=== PATIENT | male | born 1960 | race Caucasian/White ===

== ENCOUNTER 2024-05-16 08:32 | Outpatient (CLI) | payer OTHER, SELFPAY ==
--- NOTE | 2024-05-16 08:36 | XR_ITS ---
FINAL REPORT CLINICAL HISTORY: right hip pain COMPARISON: None FINDINGS: RIGHT HIP Two views of the right hip and an AP pelvis view were obtained. There is no acute fracture or dislocation. There are severe osteoarthritic changes with complete loss of the joint space. There is no evidence of bone destruction. There is no acute soft tissue abnormality. IMPRESSION: Advanced degenerative changes. Reviewed, Interpreted and Dictated by Cameron Loera MD Transcribed by Pavithra Alexander Authenticated and . [facility]
[2024-05-16 12:54] LABS: Basophils # 0.1 K/mm3 (0-0.2); Basophils % 0.6 % (0.1-2.0); Eosinophils # 0.2 K/mm3 (0.0-0.4); Eosinophils % 2.4 % (0.1-12.0); Hematocrit 46.2 % (42.0-52.0); Hemoglobin 15.2 g/dL (14.1-18.0); Lymphocytes # 1.9 K/mm3 (0.7-4.5); Lymphocytes % 22.3 % (10-50); Mean Corpuscular HGB Conc 32.9 g/dL (31.8-35.4); Mean Corpuscular Volume 94.1 fl (80-94); Mean Platelet Volume 10.6 fl (7.4-10.4); Monocytes # 0.8 K/mm3 (0.1-1.0); Monocytes % 8.9 % (1.7-9.3); Neutrophils # 5.5 K/mm3 (1.8-7.8); Neutrophils % 65.6 % (37.0-80.0); Platelet Count 277 K/mm3 (142-424); Red Blood Count 4.91 M/mm3 (4.60-6.20); Red Cell Distribution Width 13.7 % (11.5-17.5); White Blood Count 8.4 K/mm3 (4.8-10.8)
[2024-05-16 13:56] LABS: Alanine Aminotransferase 37 U/L (12-78); Albumin Level 4.3 g/dl (3.5-5.0); Albumin/Globulin Ratio 1.7 (1.1-1.8); Alkaline Phosphatase 90 U/L (38-126); Anion Gap 16.4 mEq/L (5-15); Aspartate Amino Transferase 34 U/L (17-59); Bilirubin,Total 0.6 mg/dl (0.2-1.3); Blood Urea Nitrogen 18 mg/dl (9-20); Calcium 9.1 mg/dl (8.4-10.2); Carbon Dioxide 31 mmol/L (22.0-30.0); Chloride 99 mmol/L (98-107); Chol/HDL Ratio 4.6 (1-3.5); Cholesterol 208 mg/dl (140-200); Estimated Glomerular Filt Rate 98 ml/min (>60); GFR (African American) 119 ML/MIN (>60); Globulin 2.5 g/dL (1.3-3.2); Glucose 82 mg/dl (74-100); HDL Cholesterol 45 mg/dl (40-60); Potassium 4.4 mmoL/L (3.5-5.1); Sodium 142 mmol/L (136-145); Total Protein,Serum 6.8 g/dl (6.3-8.2); Triglycerides 115 mg/dl (30-150); VLDL Cholesterol 23 mg/dL (0-40)
[2024-05-16 14:08] LABS: 25-OH Vitamin D, Total 28.3 ng/mL (30-100)
[2024-05-16 14:09] LABS: Direct LDL Cholesterol 120.15 mg/dL (100-129)
[2024-05-16 14:10] LABS: Free T4 (Free Thyroxine) 0.84 ng/dl (0.78-2.19)
[2024-05-16 14:25] LABS: Prostate Specific Ag Screen 1.2 ng/ml (0.0-4.0); Thyroid Stimulating Hormone 3.94 uIU/mL (0.465-4.68)
[2024-05-16 14:26] LABS: Hepatitis C Ab Qual. W/ RFX NEGATIVE (Negative)
[2024-05-16 14:34] LABS: HIV Combo NEGATIVE (Negative)
[2024-05-16 14:44] LABS: Vitamin B12 275 pg/mL (239-931)
[2024-05-16 15:27] LABS: Iron 111 ug/dL (49-181)
[2024-05-16 15:43] LABS: Total Iron Binding Capacity 402 ug/dL (261-462)
[2024-05-16 16:11] LABS: Ferritin 27.8 ng/ml (17.9-464)
[2024-05-16 18:06] LABS: Hemoglobin A1C 5.5 % (4.0-6.0)
== END 2024-05-16 23:59 | disposition home or self-care (01) ==
LOC: RAD 08:34
PROVIDERS: PCP Nurse Practitioner Family; Visit Provider Physician Assistant Surgical
DX: M25.551 Pain in right hip (principal); R53.83 Other fatigue; I10 Essential (primary) hypertension; E66.01 Morbid (severe) obesity due to excess calories; Z68.42 Body mass index [BMI] 45.0-49.9, adult; Z11.4 Encounter for screening for human immunodeficiency virus [HIV]; Z13.220 Encounter for screening for lipoid disorders; Z11.59 Encounter for screening for other viral diseases; Z12.5 Encounter for screening for malignant neoplasm of prostate; Z13.1 Encounter for screening for diabetes mellitus
CPT/HCPCS: 73502; 80053; 80061; 82306; 82607; 82728; 83036; 83540; 83550; 84439; 84443; 85025; 86803; 87389; G0103

== ENCOUNTER 2024-05-17 11:37 | Outpatient (CLI) | payer OTHER, SELFPAY ==
[2024-05-17 11:39] LABS: Microscopic, Urine URINE MICROSCOPIC (MICROSCOPIC)
[2024-05-17 12:06] LABS: Appearance,Urine CLEAR (Clear); Bilirubin,Urine Negative (Negative); Blood, Urine Negative (Negative); Color,Urine YELLOW (Yellow); Glucose,Urine (UA) Negative (Negative); Ketones,Urine Negative (Negative); Leukocyte Esterase,Urine Negative (Negative); Nitrate,Urine Negative (Negative); Protein,Urine Negative (Negative); Specific Gravity, Urine >= 1.030 (1.005-1.030); Urobilinogen,Urine 0.2 EU/dl (0.2)
[2024-05-17 12:38] LABS: Bacteria,Urine Trace /lpf; Mucus,Urine Trace /lpf; Squamous Epithelial Cell,Urine Occasional #/hpf (0-5)
== END 2024-05-17 23:59 | disposition home or self-care (01) ==
LOC: LAB 11:37
PROVIDERS: PCP Nurse Practitioner Family; Visit Provider Nurse Practitioner Family
DX: R53.83 Other fatigue (principal); I10 Essential (primary) hypertension; M25.551 Pain in right hip; M54.50 Low back pain, unspecified; Z87.891 Personal history of nicotine dependence
CPT/HCPCS: 81001; 84156; 87086

== ENCOUNTER 2024-05-24 12:25 | Outpatient (CLI) | payer OTHER, SELFPAY ==
--- NOTE | 2024-05-24 12:53 | ECG_ITS ---
APPROVED REPORT Exam: Resting ECG HR:79 bpm ECG Measurements Heart Rate [address] 207 P 46 QRSd 162 QRS 22 QT 382 T 26 QTc 416 Conclusion SINUS RHYTHM RIGHT BUNDLE BRANCH BLOCK ABNORMAL ECG UNCONFIRMED REPORT Electronically signed by : Wilmar Garcia MD 05/24/2024 16:09:51
== END 2024-05-24 23:59 | disposition home or self-care (01) ==
LOC: PREOP 12:26
PROVIDERS: PCP Nurse Practitioner Family; Visit Provider Orthopaedic Surgery
DX: I45.10 Unspecified right bundle-branch block (principal); R94.31 Abnormal electrocardiogram [ECG] [EKG]; Z01.810 Encounter for preprocedural cardiovascular examination
CPT/HCPCS: 93005

== ENCOUNTER 2024-05-29 09:41 | Day surgery (SDC) | payer OTHER, SELFPAY ==
[2024-05-24 13:41] VITALS: BMI 47.2
--- NOTE | 2024-05-27 10:40 | PC.NURSE ---
Reviewed pt's EKG w/ R. DURGA Calix. Determined pt ok to proceed with hip injection but recommends follow up w/ cardiology for further evaluation. Notified pt, agrees to eval. recommendation. Appt. scheduled for today @1400. Pt notified.
--- NOTE | 2024-05-28 10:44 | SUR.PREOP ---
Call placed to Cardiology as requested per Zuleyma Calix for clearance/guidance regarding pt's upcoming procedure and findings from recent appt.
[2024-05-29 10:14] VITALS: BP 133/91; PULSE 86; RESP 20; TEMP 36.4; O2SAT 96
--- NOTE | 2024-05-29 10:32 | P.PNANES_ITS ---
[facility] Disclaimer: The information contained in this section may have been updated after the patient was seen, as this information can be updated by other users. Medical History Edema Abnormal ECG COPD (chronic obstructive pulmonary disease) Screening for lipid disorders Establishing care with new doctor, encounter for Arthritis pain Obesity, morbid, BMI 40.0-49.9 Tear of left rotator cuff Hepatitis A Carpal tunnel syndrome Hypertension Surgical History History of arthroscopic knee surgery History of carpal tunnel release H/O gastric sleeve History of cholecystectomy History of total right knee replacement (TKR) H/O repair of rotator cuff Family History Other Adopted Social History Smoking Status: Former smoker tobacco type: cigarettes how long ago did patient quit smokin years ago alcohol intake: never substance use type: denies use current occupational status: disabled Travel in the last 8 weeks: None [facility] Anesthesia Checklist Patient Identification Patient Identification: Arm Band Structural Data Admitted From: Home Planned Operative Procedure/s: Right Hip Injection with Arthrogram Consent for Planned Operative Procedure(s) Verified: Yes Verified Documents: Surgical Consent and History and Physical NPO Status Verified Time NPO: 00:00 Additional verifications Anesthesia Reactions: No Hx Blood Transfusions: No Blood Transfusion Reaction: No Airway Assessment Mallampati Score:: Class II C-Spine Mobility Assessed: Yes TMJ Mobility Assessed: Yes Dentition: Good Dentition Neurological Assessment Level of Consciousness: Awake, Alert and Appropriate Anesthesia Plan Anesthesia Risk discussed: Yes Anesthesia Plan: Verified ASA Class: III Anesthesia Type: MAC
--- NOTE | 2024-05-29 10:52 | P.OP_ITS ---
Date of procedure: 05/29/24 Pre-op Diagnosis:: Right hip osteoarthritis Post-op Diagnosis:: Same Procedure performed:: Right hip injection with arthrogram x-ray guidance for needle placement Surgeon:: Oleg Peck DO Sales And Marketing Coordinator(s):: Alonzo GUERRERO ACCOUNT MANAGER EDUCATION:: Zac[facility] Mesa Anesthesia: MAC Estimated blood loss (mL): 0 Operative findings:: See dictation Operative note:: Patient was identified preoperatively. Right hip marked with yes my initials. Transferred operative suite. Given sedation. Right hip was then prepped and draped. Once prepped and draped x-ray was brought into identify the right hip capsule. Direct palpation on the femoral artery performed followed by x-ray guidance for proper trajectory of 18-gauge spinal needle into the hip capsule. This was visualized on the x-ray once needle was guided into the hip capsule there was return of clear to yellowish tinged hip fluid contrast was utilized to inject in the hip capsule to perform x-ray guidance for proper needle placement confirmed this with the arthrogram once confirmed hip was injected with 80 mg Depo-Medrol 3 cc 1% lidocaine needle was removed Band-Aid placed patient waken sedation taken recovery stable condition. Condition: stable Disposition: PACU Complications:: None apparent
[2024-05-29 10:53] VITALS: BP 157/56; PULSE 82; RESP 20; TEMP 37.2; O2SAT 94
--- NOTE | 2024-05-29 11:02 | XR_ITS ---
FINAL REPORT CLINICAL HISTORY: HIP INJECTION FLUORO TIME 0:11 COMPARISON: None FINDINGS: FLUOROSCOPY LESS THAN 1 HOUR HISTORY: FINDINGS: Fluoroscopic guidance was provided for right hip injection. A single spot film was obtained. 11 seconds of fluoroscopy time were used, with a dosage of 4.79 mGy. IMPRESSION: As above. Reviewed, Interpreted and Dictated by Cameron Loera MD Transcribed by Cornelia Mukherjee Authenticated and . [facility]
[2024-05-29 11:08] VITALS: BP 102/64; PULSE 77; RESP 20; O2SAT 96
[2024-05-29 11:23] VITALS: BP 131/75; PULSE 69; RESP 20; O2SAT 97
[2024-05-29 11:35] VITALS: BP 136/88; PULSE 96; RESP 18; O2SAT 95
== END 2024-05-29 11:35 | disposition home or self-care (01) ==
PROVIDERS: PCP Nurse Practitioner Family; Visit Provider Orthopaedic Surgery
PROC: 3E0U3GC Introduction of Other Therapeutic Substance into Joints, Percutaneous Approach (ICD-10-PCS; CPT 20610; principal; 2024-05-29 11:00)
DX: M16.11 Unilateral primary osteoarthritis, right hip (principal); Z79.899 Other long term (current) drug therapy
CPT/HCPCS: 20610; 73502

== ENCOUNTER 2024-06-06 11:10 | Outpatient (CLI) | payer OTHER, SELFPAY ==
[2024-06-06] VITALS (7 sets, daily range): BP systolic 131–169; BP diastolic 70–100; PULSE 55–75; RESP 17–18; TEMP 36.8; O2SAT 94–98; BMI 46.3
--- NOTE | 2024-06-06 11:44 | CT_ITS ---
APPROVED REPORT Labor Contract Analyst: CLINICAL INDICATION Chest Pain TECHNIQUE Image Acquisition: A 128 slice MDCT scanner (Decision Curvea View) was used for data acquisition. A noncontrast coronary calcium scan was performed. A CT attenuation threshold of 130 Hounsfield units (HU) was used for the detection of calcium in contiguous voxels of 1 sq mm in area to be counted as individual lesions. Bolus tracking in the ascending aorta with a threshold of 180 HU was performed. Immediately afterwards, ECG synchronized cardiac CT was then performed from the cardiac base to apex using retrospective gating with ECG tube current modulation. A total of 85 mL of Isovue 370 mg/mL contrast medium was administered at 5 mL/sec followed by a saline flush using a biphasic injection protocol. A tube voltage of 120 KVp was used. The patient received the following medications prior to the cardiac CT. 100 mg of oral metoprolol 15 mg of oral ivabradine 0.8 mg of sublingual nitroglycerin The average heart rate at the time of acquisition was 50 bpm and regular. Image Reconstruction Transaxial images were reconstructed at 0.67 mm slide thickness. Data was reviewed interactively on an advanced workstation capable of 2 and 3-dimensional displays in all conventional reconstruction formats, including multiplanar reformations, maximum intensity projections, curved multiplanar reformations, and volume rendered reconstructions. When applicable, selected routine images describing the relevant coronary anatomy and pathology were saved and sent to PACS. Complications None Technical Quality Overall image quality was suboptimal due to significant blurring and motion artifact. Coronary artery opacification was suboptimal. Total DLP (Dose-Length Product) is 2498.8 mGy-cm. The reported value represents the total of one or more individual components during the CT acquisition of this date and at this time, and as such, the same value may appear in more than one CT report depending on the interpreting/reporting physicians. COMPARISON None FINDINGS CT Coronary Calcium Scoring LMA (Left Main Artery) = 142 LAD (Left Anterior Descending) = 124 LCX (Left Coronary Circumflex) = 0 RCA (Right Coronary Artery) = 233 Total Calcium Score = 499 using the AJ-130 method. The observed calcium score of 499 is at 89th percentile for subjects of the same age, sex, and race/ethnicity. The interpretation of the calcium heart score is based on the following continuum*: 0 = no calcified plaque detected (risk of coronary artery disease is very low ??? less than 5%) 1-10 = calcium detected in extremely minimal levels (risk of coronary diseases is still low ??? less than 10%) 11-100 = mild levels of plaque detected with certainty (mild or minimal narrowing of heart arteries is likely) 101-400 = definite,at least moderate levels of plaque detected (relatively high risk of a heart attack within 3-5 years) >401-999 = extensive levels of plaque detected (high risk of heart attack, high levels of vascular disease are present, high likelihood of at least one significant coronary narrowing) *The calcium heart score quantifies the burden of coronary calcification/plaque in the coronary arteries. The calcium heart score is not able to evaluate the presence or burden of non-calcified (i.e. soft) plaque. There is mild calcification of the descending thoracic aorta. Coronary CT Angiography The coronary arterial system is right dominant. Quantitative Stenosis Grading: Left Main (LM): The left main originates normally from the left sinus of Valsalva. The LM bifurcates into the left anterior descending artery and left circumflex artery. There is mixed calcified/noncalcified proximal LM, with < 25% gnosis. Left Anterior Descending (LAD) and Diagonal Branches: The LAD gives off 3 diagonal branch(es). There is mixed calcified/noncalcified plaque in the proximal and mid LAD segments with up to 50 to 70% luminal stenosis. There is no evidence of LAD-myocardial bridge. Left Circumflex (LCX) and Obtuse Marginals (OM): The LCX gives off 1 Obtuse Marginal (OM) branch(es). The LCX and its branches are patent with no evidence of atherosclerosis. Right Coronary Artery (RCA): The RCA originates normally from the right sinus of Valsalva. The RCA gives off a posterior descending artery (PDA) and posterolateral (PL) branches. Calcified/noncalcified plaque in the proximal RCA segment with up to 50 to 70% luminal stenosis. Non-Coronary Cardiac Findings: Analysis of the left ventricular (LV) structure and function was performed after 3-D reconstruction of the LV from axial images, with user-corrected automatic contouring for assessment of LV volumes and user-defined reconstruction from oblique planes for measurement of 3-D cardiac structure and function. -The left ventricle systolic function is indeterminate in the study. -There is no left atrial appendage filling defect. Two right pulmonary veins and two left pulmonary veins drain normally into the left atrium. -No pericardial thickening or calcification. -Central and branch pulmonary arteries in the [id number] are unremarkable. -Thoracic aorta within the visualized thoracic aortic-branches in the [id number] is unremarkable. Extracardiac Structures Small circumferential pericardial effusion is present. IMPRESSION -Suboptimal image quality due to significant motion and blurring artifact, as well as suboptimal IV opacification of the coronary arteries. This may affect the diagnostic interpretation of the study findings. -Presence of coronary calcification with an Agatston score = 499 using the AJ-130 method. -The observed calcium score of 499 is at 89th percentile for subjects of the same age, sex, and race/ethnicity. -Multivessel atherosclerotic coronary disease with possible evidence of significant flow-limiting atherosclerosis of the proximal LAD and/or proximal RCA segments. -CAD-RADS 3. Management recommendations per ACC/AHA guidelines*, as clinically appropriate. -Small circumferential pericardial effusion is present. -Mild calcification of the descending thoracic aorta. *Recommendations: CAD RADS 0: Reassurance. Consider non-atherosclerotic causes of chest pain. CAD RADS 1: Consider non-atherosclerotic causes of chest pain. Consider preventive therapy and risk factor modification. CAD RADS 2: Consider non-atherosclerotic causes of chest pain. Consider preventive therapy and risk factor modification, particularly for patients with nonobstructive plaque in multiple segments. CAD RADS 3: Consider further functional testing. Consider symptom-guided anti-ischemic and preventive pharmacotherapy as well as risk factor modification per published guideline statements. CAD RADS 4A: Consider further functional testing or invasive coronary angiography with revascularization per published guideline statements. Consider symptom-guided anti-ischemic and preventive pharmacotherapy as well as risk factor modification per published guideline statements. CAD RADS 4B: Invasive coronary angiography recommended with revascularization per published guideline statements. Consider symptom-guided anti-ischemic and preventive pharmacotherapy as well as risk factor modification per published guideline statements. CAD RADS 5: Consider invasive angiography and/or viability assessment with revascularization per published guideline statements. Consider symptom-guided anti-ischemic and preventive pharmacotherapy as well as risk factor modification per published guideline statements. CRITICAL RESULT None COMMUNICATION Per this written report The coronary and cardiac findings of this CCTA were reviewed, reported, and signed by Rigoberto Sharma MD (Closing Supervisor) Conclusion Electronically signed by : Angelita Sharma MD 06/11/2024 12:47:17
[2024-06-06] MEDS: IVABRADINE HCL 7.5MG TABLET 15 MG PO (12:29)
[2024-06-06] MEDS: METOPROLOL TARTRATE 50MG TABLET 50 MG (12:29)
[2024-06-06] MEDS: METOPROLOL TARTRATE 50MG TABLET PO (13:18)
[2024-06-06] MEDS: SODIUM CHLORIDE 0.9% 10ML SYR (RAD ONLY) 10 ML IV (14:13)
[2024-06-06] MEDS: 0.9 % SODIUM CHLORIDE 50 ML VIAL IV (14:13)
[2024-06-06] MEDS: IOPAMIDOL-370 (76%);100ML BOTTLE 85 ML IV (14:13)
== END 2024-06-06 14:50 | disposition home or self-care (01) ==
LOC: RT 11:11 → RAD 12:19
PROVIDERS: PCP Nurse Practitioner Family; Visit Provider Physician Assistant
DX: I25.10 Atherosclerotic heart disease of native coronary artery without angina pectoris (principal); R94.31 Abnormal electrocardiogram [ECG] [EKG]; R60.9 Edema, unspecified
CPT/HCPCS: 75574; 93306; Q9967

== ENCOUNTER 2024-07-16 12:40 | Outpatient (CLI) | payer OTHER, SELFPAY ==
--- NOTE | 2024-07-16 13:23 | ECG_ITS ---
APPROVED REPORT Exam: Resting ECG HR:93 bpm ECG Measurements Heart Rate 93 AXES NV 176 P 26 QRSd 129 QRS 63 QT 384 T 25 QTc 435 Conclusion SINUS RHYTHM RIGHT BUNDLE BRANCH BLOCK Old anteroseptal changes ABNORMAL ECG UNCONFIRMED REPORT Electronically signed by : Wilmar Garcia MD 07/17/2024 08:01:26
== END 2024-07-16 23:59 | disposition home or self-care (01) ==
LOC: PREOP 12:41
PROVIDERS: PCP Nurse Practitioner Family; Visit Provider Orthopaedic Surgery
DX: Z01.810 Encounter for preprocedural cardiovascular examination (principal); I45.10 Unspecified right bundle-branch block; R94.31 Abnormal electrocardiogram [ECG] [EKG]
CPT/HCPCS: 93005

== ENCOUNTER 2024-07-22 10:00 | Day surgery (SDC) | payer OTHER, SELFPAY ==
[2024-07-16 13:33] VITALS: BMI 44.1
--- NOTE | 2024-07-22 | XR_ITS ---
FINAL REPORT CLINICAL HISTORY: Left Hip Injection in OR 0.0 min 2.21 mGy FINDINGS: FLUOROSCOPY LESS THAN 1 HOUR HISTORY: Fluoroscopy guidance. Fluoroscopic guidance was provided for left hip injection in the OR. A single spot film was obtained. A total of 0.0 minutes of fluoroscopy time were used. Total DAP: 2.21 mGy IMPRESSION: As above. Reviewed, Interpreted and Dictated by Shawna Bae MD Transcribed by Bethany Bell Authenticated and [facility]
[2024-07-22 10:41] VITALS: BP 153/81; PULSE 84; RESP 18; TEMP 36.6; O2SAT 94
[2024-07-22] MEDS: LACTATED RINGERS 1000ML 1,000 ML 100 ML IV (11:08)
[2024-07-22] MEDS: TRIAMCINOLONE ACET 40MG/ML VIAL 80 MG (13:05)
[2024-07-22] MEDS: LIDOCAINE 1% 10ML MDV 10 ML (13:05)
--- NOTE | 2024-07-22 13:10 | EXP.OP.NOTE ---
Date of procedure: 07/22/24 Pre-op Diagnosis:: Left hip osteoarthritis Post-op Diagnosis:: Same Procedure performed:: Left hip injection with arthrogram x-ray guidance for needle placement Surgeon:: Oleg Peck DO Anesthesia: MAC Estimated blood loss (mL): 0 Operative findings:: See dictation Operative note:: Patient identified preoperatively. Left hip marked yes my initials. Transported operative suite placed upon the radiolucent bed. Left hip was prepped and draped normal sterile fashion after patient was given sedation. Once prepped and draped final operative timeout performed to identify proper patient procedure and extremity. Everyone involved the case agreed. Is no counter indication beginning. X-rays brought into identify the left hip joint. 18-gauge spinal needle was directed into the hip capsule under proper trajectory using x-ray guidance. Once in the hip joint arthrogram was performed to confirm needle placement. Once confirmed to be intra-articular and in the proper position the hip was injected with 80 mg of Kenalog 3 cc of 1% lidocaine patient tolerated procedure well without complication taken to stepdown in stable condition. Condition: stable Disposition: PACU Complications:: None apparent
[2024-07-22 13:13] VITALS: BP 146/78; PULSE 72; RESP 17; TEMP 36.5; O2SAT 97
[2024-07-22] MEDS: IOPAMIDOL-370 (76%);100ML BOTTLE 10 ML IV (13:18)
[2024-07-22 13:23] VITALS: BP 141/80; PULSE 78; RESP 17; O2SAT 97
[2024-07-22 13:33] VITALS: BP 140/91; PULSE 71; RESP 18; O2SAT 97
== END 2024-07-22 13:43 | disposition home or self-care (01) ==
PROVIDERS: PCP Nurse Practitioner Family; Visit Provider Orthopaedic Surgery
PROC: 3E0U3GC Introduction of Other Therapeutic Substance into Joints, Percutaneous Approach (ICD-10-PCS; CPT 20610; principal; 2024-07-22 12:15)
DX: M16.12 Unilateral primary osteoarthritis, left hip (principal)
CPT/HCPCS: 20610; 77002; 73502; J2250; J2405; J3010; J3301; J7120; Q9967

== ENCOUNTER 2024-08-06 07:16 | Outpatient (CLI) | payer OTHER, SELFPAY ==
--- NOTE | 2024-08-06 | CA_ITS ---
APPROVED REPORT Exam: Pharmacologic Technologist: Winifred Moe Ht: 5 ft 9 in Wt: 310 lbs BSA: 2.49 m2 HR: 62 bpm BP: 154/64 mmHg Stress Test Details Test: Lexiscan HR Resting HR: 62 bpm Max Heart Rate (APMHR): 159.183035 bpm Max HR Achieved: 82 bpm Target HR (85% APMHR): 135.948554 bpm % of APMHR: 51.57 Recovery HR: 70 bpm BP Resting BP: 154.0/64.0 mmHg Max BP: 154.0/64.0 mmHg Recovery BP: 123.0/67.0 mmHg ECG Resting ECG: Sinus rhythm, right bundle branch block Stress ECG Conclusion Symptoms: Dyspnea Arrhythmias/Ectopy: Right bundle branch block ST-T Changes: Less than [address] depression Conclusion: Unremarkable due to Lexiscan infusion. Electronically signed by : Angelita Sharma MD 08/06/2024 12:16:03
--- NOTE | 2024-08-06 07:30 | NM_ITS ---
APPROVED REPORT Exam: Nuclear Stress Test Indication: Abnormal CCTA, HTN, High cholesterol Patient Location: Outpatient Stress Tech: Winifred Moe NM Tech:Mulu Monterroso, ARRT, RT (R)(N) Ht: 5 ft 9 in Wt: 296 lbs HR: 62 bpm BP: 154/64 mmHg BSA: 2.44 m2 TID: 1.23 BMI: 43.7 History: Abnormal CCTA, HTN, High cholesterol Procedure: Patient received 0.4 mg of intravenous Lexiscan, resting heart rate 62 bpm, resting blood pressure 154/64 mmHg, with Lexiscan maximum heart rate achieved was 84 bpm which is % of the maximum predicted heart rate and blood pressure was 126/71 mmHg. With Lexiscan, patient denied any complaint of chest pain. Cardiac Stress and Resting SPECT Images: Cardiac Stress and Resting SPECT images were obtained using technetium 99m Myoview 30.2 mCi stress and 10.35 mCi at rest. Resting and stress imaging in supine and prone positions demonstrate no evidence of fixed or reversible perfusion defects. There is increase in transient ischemic dilatation ratio (TID 1.23), which may be suggestive of possible multivessel disease or balanced ischemia. Gated imaging demonstrates low-normal global and regional LV systolic function. LVEF is calculated at 51%. Conclusion: No evidence of fixed or reversible perfusion defects. There is increase in transient ischemic dilatation ratio (TID 1.23), which may be suggestive of possible multivessel disease or balanced ischemia. Gated imaging demonstrates low-normal global and regional LV systolic function. LVEF is calculated at 51%. Electronically signed by : Angelita Sharma MD 08/06/2024 12:13:42
[2024-08-06] MEDS: ISOTOPE MYOVIEW (PER STUDY) 1 DOSE IV (09:09)
[2024-08-06] MEDS: SODIUM CHLORIDE 0.9% 10ML SYR (RAD ONLY) 10 ML IV ×2 (09:09)
[2024-08-06] MEDS: REGADENOSON 0.4MG/5ML SYRINGE 0.4 MG IV (09:09)
== END 2024-08-06 23:59 | disposition home or self-care (01) ==
LOC: RAD 07:17
PROVIDERS: PCP Nurse Practitioner Family; Visit Provider Physician Assistant
DX: I25.10 Atherosclerotic heart disease of native coronary artery without angina pectoris (principal); R93.1 Abnormal findings on diagnostic imaging of heart and coronary circulation; I31.39 Other pericardial effusion (noninflammatory)
CPT/HCPCS: 78452; 93017; 93018; A9502; J2785

== ENCOUNTER 2024-08-09 10:08 | Outpatient (CLI) | payer OTHER, SELFPAY ==
--- NOTE | 2024-08-09 10:15 | CA_ITS ---
APPROVED REPORT EXAM: Limited 2D Echocardiogram Moving Consultant: Brittney Funk, RCS, RVS Ht: 5 ft 9 in Wt: 310lbs BSA: 2.49 BP: 149/85 mmHg Indications: Pericardail effusion check, Abn EKG, COPD, Obesity, CAD, HTN, Edema 2D Dimensions IVSd 1.44 cm LVEF (Visual) 71.80 % PWd 1.16 cm EF AP4 68.20 % LVDd 4.71 cm GL Strain -31.1 % LVDs 2.78 cm M-Mode Dimensions RVDd 4.14 cm (0.9-2.6) LVDd 5.09 cm (3.5-5.7) LVDs 3.04 cm (3.5-5.7) IVSd 1.55 cm (0.6-1.1) PWd 1.38 cm (0.6-1.1) EF (Teich) 70.60% FS 40.30% EDV (Teich) 123.20 mL ESV (Teich) 36.20 mL Other Information Study Quality: Fair Conclusion This is a limited TTE to evaluate for pericardial effusion. Limited windows are obtained. There is a small sized, circumferential pericardial effusion present. The largest pocket measures 0.5 cm in diastole. No echo indications of tamponade or evidence of chamber collapse. Compared to prior study from 06/06/2024, the location and size of the pericardial effusion are overall unchanged. Electronically signed by : Angelita Sharma MD 08/11/2024 20:32:44
== END 2024-08-09 23:59 | disposition home or self-care (01) ==
LOC: RT 10:08
PROVIDERS: PCP Nurse Practitioner Family; Visit Provider Physician Assistant
DX: I31.39 Other pericardial effusion (noninflammatory) (principal); J44.9 Chronic obstructive pulmonary disease, unspecified; E66.9 Obesity, unspecified; I25.10 Atherosclerotic heart disease of native coronary artery without angina pectoris; I10 Essential (primary) hypertension; R94.31 Abnormal electrocardiogram [ECG] [EKG]; R93.1 Abnormal findings on diagnostic imaging of heart and coronary circulation
CPT/HCPCS: 93308

== ENCOUNTER 2024-08-30 08:55 | Day surgery (SDC) | payer OTHER, SELFPAY ==
[2024-08-30] VITALS (13 sets, daily range): BP systolic 149–181; BP diastolic 78–99; PULSE 60–80; RESP 16–20; TEMP 36.9; O2SAT 80–93; BMI 45.3
--- NOTE | 2024-08-30 07:13 | IR_ITS ---
APPROVED REPORT Patient Location: Outpatient Lead Qa Analyst: ELIAS Rosario RT (R) PROCEDURES Left heart catheterization Left ventriculogram Selective coronary angiogram Drug-eluting stent deployment to the proximal LAD INDICATION Coronary artery disease, Angina pectoris, Abnormal CCTA, Abnormal nuclear scan Informed consent was obtained prior to the procedure. COMPLICATIONS NONE Estimated Blood Loss: LESS THAN 10 ML TECHNIQUE One percent lidocaine used to anesthetize the right anterior aspect of the wrist. The right radial artery was accessed via the Seldinger technique. A 6 [place] sheath was placed in the right radial artery. 2.5 mg of Verapamil, 800 mcg of nitroglycerin, 1mg Lidocaine and 5000 U Heparin were given through the arterial sheath. The JL3 catheter was also used to perform left heart catheterization, left ventriculogram and selective coronary angiogram. At the end of the diagnostic angiogram therapeutic heparin was administered giving a therapeutic ACT and a BMW wire was placed into the distal LAD. A 4 mm x 26 mm Josh frontier stent was deployed at 12 edwin reducing the stenosis to 0%. DARI-3 flow was present before and after the procedure. At the end of procedure the apparatus was removed the sheath was removed and hemostasis was achieved using TR banding patient was transferred to the postop putting in stable condition ANGIOGRAPHIC RESULTS The left main artery Normal The left anterior descending artery Has a proximal concentric 70% stenosis with remaining vessel widely patent The circumflex artery Gives rise to a large caliber first obtuse marginal artery which has 20 to 30% concentric stenosis The right coronary artery Dominant and has proximal 20 and 30% stenoses with distal 10% luminal regularities The CAREY ventriculogram reveals Normal 60% The left ventricular end-diastolic pressure 20 mmHg IMPRESSION Severe proximal LAD disease as described above Successful stenting the proximal AD severe disease reduced to 0% with 1 drug-eluting stent Normal ejection fraction Elevated LVEDP PLAN 1. Effient and aspirin 2. LDL less than 55 achieved with high intensity statin 3. Avoidance of tobacco products 4. Risk factor modification 5. Cardiac rehabilitation Electronically signed by : Reji Shi MD 08/30/2024 13:15:05
[2024-08-30 09:24] LABS: Basophils % 0.3 % (0.1-2.0); Eosinophils # 0.1 Kmm3 (0.0-0.4); Eosinophils % 0.7 % (0.1-12.0); Hematocrit 47.3 % (42.0-52.0); Hemoglobin 15.2 g/dL (14.1-18.0); Immature Granulocytes # 0.04 10^3uL; Immature Granulocytes % 0.3 %; Lymphocytes # 2.4 K/mm3 (0.7-4.5); Lymphocytes % 19.8 % (10-50); Mean Corpuscular HGB Conc 32.1 g/dL (31.8-35.4); Mean Corpuscular Hemoglobin 30.6 pg (27.0-31.2); Mean Corpuscular Volume 95.2 fl (80-94); Mean Platelet Volume 9.6 fl (7.4-10.4); Monocytes # 0.9 K/mm3 (0.1-1.0); Monocytes % 7.6 % (1.7-9.3); Neutrophils # 8.8 K/mm3 (1.8-7.8); Neutrophils % 71.3 % (37.0-80.0); Nucleated Red Blood Cells # 0 10^3/uL; Nucleated Red Blood Cells % 0 %; Platelet Count 280 K/mm3 (142-424); Red Blood Count 4.97 M/mm3 (4.60-6.20); Red Cell Distribution Width 13.4 % (11.5-17.5); Red Cell Distribution Width-SD 46.9 fL; White Blood Count 12.3 K/mm3 (4.8-10.8)
[2024-08-30 09:34] LABS: Anion Gap 10.6 mEq/L (5-15); Blood Urea Nitrogen 23 mg/dl (9-20); Calcium 9.4 mg/dl (8.4-10.2); Carbon Dioxide 32 mmol/L (22.0-30.0); Chloride 102 mmol/L (98-107); Creatinine Clearance Estimated 78 mL/min (50-200); Estimated Glomerular Filt Rate 86 ml/min (>60); GFR (African American) 104 ML/MIN (>60); Glucose 107 mg/dl (74-100); Potassium 3.6 mmoL/L (3.5-5.1); Sodium 141 mmol/L (136-145)
[2024-08-30] MEDS: 0.9 % SODIUM CHLORIDE 500 ML 25 ML IV (11:45)
[2024-08-30] MEDS: HEPARIN 1,000 UNITS/500ML NS (CATH LAB) 3000 UNIT IV (11:45)
[2024-08-30] MEDS: LIDOCAINE 1% 10ML MDV 10 ML IJ (11:45)
[2024-08-30] MEDS: HEPARIN 1,000 UNITS/ML 10ML VIAL (CATH LAB) 5000 UNIT IV ×2 (11:45→12:11)
[2024-08-30] MEDS: diphenhydrAMINE 50MG/ML VIAL 50 MG IV (11:46)
[2024-08-30] MEDS: VERAPAMIL 2.5MG/ML 2ML VIAL 2.5 MG IV (11:46)
[2024-08-30] MEDS: NITROGLYCERIN 800MCG/8ML SYR (CATH LAB) 800 MCG IA (11:46)
[2024-08-30] MEDS: FENTANYL 100MCG/2ML VIAL 50 MCG IV (12:24)
[2024-08-30] MEDS: MIDAZOLAM HCL 1MG/ML 5ML VIAL 1 MG IV (12:24)
[2024-08-30] MEDS: PRASUGREL 10MG TAB 60 MG PO (12:32)
[2024-08-30] MEDS: IOPAMIDOL-370 (76%);100ML BOTTLE 125 ML IV (16:00)
[2024-08-30 16:01] LABS: CATHL Activated Clotting Time 311 SEC (74-125)
== END 2024-08-30 14:56 | disposition home or self-care (01) ==
PROVIDERS: PCP Nurse Practitioner Family; Visit Provider Internal Medicine
PROC: 4A023N7 Measurement of Cardiac Sampling and Pressure, Left Heart, Percutaneous Approach (ICD-10-PCS; CPT 93452; principal; 2024-08-30 10:15)
DX: I25.119 Atherosclerotic heart disease of native coronary artery with unspecified angina pectoris (principal); R94.39 Abnormal result of other cardiovascular function study; R94.31 Abnormal electrocardiogram [ECG] [EKG]; J44.9 Chronic obstructive pulmonary disease, unspecified; I10 Essential (primary) hypertension; E66.01 Morbid (severe) obesity due to excess calories; Z68.41 Body mass index [BMI] 40.0-44.9, adult; Z98.84 Bariatric surgery status; Z87.891 Personal history of nicotine dependence; Z79.82 Long term (current) use of aspirin; Z79.899 Other long term (current) drug therapy; Z95.5 Presence of coronary angioplasty implant and graft
CPT/HCPCS: 92928; 93458; 80048; 85025; 85347; 99152; 99153; C1725; C1760; C1769; C1874; J1200; J1644; J3010; Q9967

== ENCOUNTER 2025-01-06 15:53 | Outpatient (CLI) | payer OTHER, SELFPAY ==
--- OUTSIDE RECORDS SUMMARY | 2025-01-06 15:56 | XMS_ITS | Clinical Summary ---
Author Organization Healthcare Address [address] [place] [address] Care Team Providers Care Seed Analysis Laboratory Assistant Name Role Phone Shayla Snyder APRN Primary Care Provider [phone] Allergies No known active allergies Medications amLODIPine (Norvasc) 10 MG tablet 07/10/2024 Active Aspirin Low Dose 81 MG EC tablet Take 1 tablet by mouth daily. 08/30/2024 Active cyclobenzaprine (Flexeril) 10 MG tablet Take 1 tablet by mouth 3 times a day as needed for muscle spasms. 11/20/2023 Active hydroCHLOROthia zide (HYDRODiuril) 25 MG tablet 06/12/2024 Active metoprolol succinate XL (Toprol-XL) 50 MG 24 hr tablet 12/15/2023 Act saira rosuvastatin (Crestor) 20 MG tablet 05/17/2024 Active prasugrel (Effient) 10 MG tablet Take 1 tablet by mouth daily. Active cholecalciferol (Vitamin D3) 25 MCG (1000 UT) tablet Take 2 tablets by mouth daily. Active Active Problems Problem Noted Date Diagnosed Date Arthritis of left hip 09/26/2024 Social History Tobacco Use Types Packs/Day Years Used Date Smoking Tobacco: Former Cigarettes Q uit: 09/01/2001 Smokeless Tobacco: Never Alcohol Use Standard Drinks/Week Comments Not Currently 0 (1 standard drink = 0.6 oz pur e alcohol) last drink was in August Sex and Gender Information Value Date Recorded Sex Assigned at Not on file Legal Sex Male 5:03 PM EDT Gender Identity Not on file Sexual Orientation Not on file Last Filed Vital Signs Vital Sign Reading Time Taken Comments Blood Pressure 157/89 09/26/2024 3:15 PM EDT Pulse 114 09/26/2024 3:15 PM EDT Temperature - - Respiratory Rate - - Oxygen Saturation 95% 09/26/2024 3:15 PM EDT Inhaled Oxygen Concentration - - Weight 134 kg (295 lb) 09/26/2024 3:15 PM EDT Height 175.3 cm (5' 9 ) 09/26/2024 3:15 PM EDT Body Mass Index 43.56 09/26/2024 3:15 PM EDT Plan of Treatment Health Maintenance Due Date Last Done Comments [facility]-Depression Screening 1962 [facility]-HIV Screening 1962 [facility]-Hepatitis C Screening 1962 [facility]-/Child/Adol SDOH Screenings 1962 [facility]- SDOH Screenings 1980 [facility]-Adult SDOH Screenings 1980 [facility]-DTaP,Tdap,and Td Vaccine s (1 - Tdap) 1981 CT Colonography 12/09/2007 Colonoscopy 12/09/2007 FIT-DNA 12/09/2007 FIT 12/09/2007 FOBT 12/09/2007 Sigmoidoscopy 12/09/2007 [facility]-Colorectal Cancer Screening 12/09/2007 [facility]-Pneumococcal Vaccine: 50 + Years (1 of 1 - PCV) 2012 [facility]-Zoster Vaccines (1 of 2) 2012 [facility]-RSV Vaccine: 60+ Years o r (1 - Risk 60-74 years 1-dose series) 2022 [facility]-MAUEX-01 Vaccine (1 - 20 24-25 season) 2024 [facility]-Influenza Vaccine (#1) 2024 01/02/2024 [facility]-Obesity Intervention Completed 09/26/2024 HPV Vaccines Aged Out No longer eligi ble based on patient's age to complete this topic [facility]-HIB Vaccines Aged Out No longer e ligible based on patient's age to complete this topic [facility]-Hepatitis A Vaccines Aged Out No longer eligible based on patient's age to complete this topic [facility]-IPV Vaccines Aged Out No longer e ligible based on patient's age to complete this topic [facility]-Rotavirus Vaccines Aged Out No lo nger eligible based on patient's age to complete this topic Insurance [employer]ICA[employer] Care Teams Seed Analysis Laboratory Assistant Relationship Specialty Start Date End Date Shayla Snyder APRN [address] [place] [id number] PCP - General 09/16/24
--- OUTSIDE RECORDS SUMMARY | 2025-01-06 15:56 | XMS_ITS | Encounter Summary ---
Author Organization Healthcare Address [address] [id number] Care Team Providers Care Refining Machine Operator Name Role Phone Shayla Snyder APRN Primary Care Provider [phone] Reason for Referral * Consultation (Routine) - Closed Specialty Diagnoses / Procedures Referred By Manuela masterson Referred To Contact Orthopaedic Surgery Diagnoses Osteoarthritis of left hip, unspecified osteoarthritis type Osteoarthritis of right hip, unspecified osteoarthritis type Oleg Peck DO [facility] [address] [id number] Phone: tel: fax: Wilmar Bustamante MD [address] [address] Phone: tel: fax: Referral ID Status Reason Start Date Expiration Date Visits Re quested Visits Authorized [id number] Closed 09/10/2024 03/12/2026 1 1 Encounter Details Date Type Department Care Team (Latest Contact Info) Description 09/10/2024 Community [facility] [address] [place] [address] Oleg Peck DO [address] [facility] [address] [place] [address] Osteoarthritis of left hip, unspecified osteoarthritis type (Primary Dx); Osteoarthritis of right hip, unspecified osteoarthritis type Social History Tobacco Use Types Packs/Day Years Used Date Smoking Tobacco: Never Assessed Sex and Gender Information Value Date Recorded Sex Assigned at Not on file Legal Sex Male 5:03 PM EDT Gender Identity Not on file Sexual Orientation Not on file documented as of this encounter Plan of Treatment Scheduled Referrals Name Type Priority Associated Diagnoses Orde r Schedule Ambulatory referral to Orthopaedics Joint Reconstruction Outpatient Referral Routine Osteoarthritis of left hip, unspecified osteoarthritis type Osteoarthritis of right hip, unspecified osteoarthritis type Expected: 09/10/2024 (Approximate), Expires: 09/10/2025 documented as of this encounter Visit Diagnoses Diagnosis Osteoarthritis of left hip, unspecified osteoarthritis type- Primary Osteoarthritis of right hip, unspecified osteoarthritis type documented in this encounter Care Teams Refining Machine Operator Relationship Specialty Start Date End Date Shayla Snyder APRN [address] [place] [address] PCP - General 09/16/24 documented as of this encounter
== END 2025-01-06 23:59 | disposition home or self-care (01) ==
LOC: RT 15:54
PROVIDERS: PCP Internal Medicine; Visit Provider Internal Medicine
DX: I49.3 Ventricular premature depolarization (principal); I44.1 Atrioventricular block, second degree; I25.10 Atherosclerotic heart disease of native coronary artery without angina pectoris; R94.31 Abnormal electrocardiogram [ECG] [EKG]
CPT/HCPCS: 93270

== ENCOUNTER 2025-01-17 13:00 | Outpatient (CLI) | payer OTHER, SELFPAY ==
--- NOTE | 2025-01-17 13:00 | CA_ITS ---
APPROVED REPORT EXAM: Comprehensive 2D, Doppler, and color-flow Echocardiogram Tray Worker: Kamryn Biggs RDCS Ht: 5 ft 9 in Wt: 310lbs BSA: 2.49 BP: 163/97 mmHg Indications: F/U SANDIP EFF LIMITED/TDS M-Mode Dimensions RVDd 3.59 cm (0.9-2.6) LA Diam 3.86 cm (1.9-4.0) LVDd 5.07 cm (3.5-5.7) LVDs 3.75 cm (3.5-5.7) IVSd 1.12 cm (0.6-1.1) PWd 0.92 cm (0.6-1.1) EF (Teich) 50.90% FS 26.00% EDV (Teich) 122.10 mL ESV (Teich) 60.00 mL Other Information Study Quality: Fair Conclusion This is a limited TTE to evaluate for pericardial effusion. Limited windows are obtained. There is a small-sized, circumferential pericardial effusion present. The largest pocket measures 0.8 cm in diastole and is noted posteriorly. No evidence of chamber collapse or tamponade. Compared to prior study from 08/09/2024, the pericardial effusion is unchanged anteriorly to slightly larger in the posterior pocket. Clinical correlation is required. Electronically signed by : Angelita Sharma MD 01/17/2025 14:42:05
== END 2025-01-17 23:59 | disposition home or self-care (01) ==
LOC: RT 13:01
PROVIDERS: PCP Internal Medicine; Visit Provider Internal Medicine
DX: I31.39 Other pericardial effusion (noninflammatory) (principal); I25.10 Atherosclerotic heart disease of native coronary artery without angina pectoris; R94.31 Abnormal electrocardiogram [ECG] [EKG]
CPT/HCPCS: 93308